=== PATIENT | male | born 1995 | race Caucasian/White ===

== ENCOUNTER → 2021-03-02 19:52 | Outpatient (CLI) | payer SELFPAY ==
[2021-03-02 21:49] LABS: Urine N gonorrhoeae NOT DETECTED
[2021-03-02 21:56] LABS: Urine Chlamydia NOT DETECTED
== END ==
PROVIDERS: Visit Provider Student in an Organized Health Care Education/Training Program
DX: N50.819 Testicular pain, unspecified (principal)
CPT/HCPCS: 87086; 87491; 87591

== ENCOUNTER → 2025-08-24 07:07 | Outpatient (CLI) | payer BC, SELFPAY ==
--- NOTE | 2025-08-24 07:09 | DI.ECHO.S_ITS ---
[facility] : : [address] : : [place] : : [id number] : : Phone: [phone] Echocardiogram Report + + :Name: LEONELA CHOUDHARY Study Date: 08/24/2025 Height: 62 in : :[facility] ReadingLocation: Weight: 203 lb : : Gender: Male BSA: 1.9 m2 : :: 1995 Age: 30 yrs BP: 138/87 mmHg: :Reason For Study: Hypertension : :Ordering Physician: SELENE, : :ALISHA Performed By: Denis Cazares : :Referring: ALISHA MORTON : + + Interpretation Summary Normal echo study. Procedure: A two-dimensional transthoracic echocardiogram with color flow and Doppler was performed. The study quality was technically adequate. There is no prior echocardiogram noted for this patient. The patient was in normal sinus rhythm during the exam. Left Ventricle: The left ventricle is normal in size and wall thickness. The ejection fraction is estimated to be 55-60%. There are no focal wall motion abnormalities. Normal diastolic function. Right Ventricle: The right ventricle is normal in size and function. Atria: The left atrial size is normal. Right atrial size is normal. There is no Doppler evidence for an interatrial shunt. Mitral Valve: The mitral valve leaflets appear normal. There is no evidence of stenosis, fluttering, or prolapse. There is trace mitral regurgitation. Aortic Valve: The aortic valve is trileaflet. The aortic valve opens well. There is no aortic valve stenosis. No aortic regurgitation is present. Tricuspid Valve: The tricuspid valve leaflets are thin and pliable. There is trace tricuspid regurgitation. The right ventricular systolic pressure is estimated to be at least 24 mmHg based on an estimated right atrial pressure of 3 mm Hg. Pulmonic Valve: The pulmonic valve leaflets are thin and pliable; valve motion is normal. There is a trace or physiologic amount of pulmonic regurgitation. Great Vessels: The aortic root is normal size. The ascending aorta is normal in size. The aortic arch is normal in size. The pulmonary artery is normal size. The IVC is of normal diameter and collapses greater than 50% with a sniff. This suggests a low right atrial pressure of 3 mm Hg. Pericardium/ Pleura There is no pericardial effusion. MMode/2D Measurements & Calculations LVIDd: 5.3 cm LVOT diam: 2.1 cm LVIDs: 3.2 cm Ao root diam: 3.0 cm FS: 38.6 % asc Aorta Diam: 3.0 cm IVSd: 0.93 cm Ao Arch Diam (Prox Trans): 2.6 cm LVPWd: 0.87 cm LV nesbitt. diameter/BSA (cm/m^2): 2.7 LV sys. diameter/BSA (cm/m^2): 1.7 LA A2 area: 17.6 cm2 RA long axis: 5.6 cm LA A4 area: 17.8 cm2 RA area: 15.9 cm2 LA length (vol): 6.1 cm RA vol: 38.6 ml LA vol: 43.4 ml RA : 20.1 ml/m2 LA vol index: 22.6 ml/m2 IVC diam: 1.6 cm RVD1 (basal): 2.9 cm RVD2 (mid): 2.2 cm TAPSE: 1.9 cm Doppler Measurements & Calculations Ao V2 max: 134.6 cm/sec LVOT Max Vishal: 126.2 cm/sec Ao V2 mean: 97.8 cm/sec LV V1 max P.4 mmHg Ao max P.3 mmHg LV V1 VTI: 21.1 cm Ao mean P.3 mmHg RAJI(I,D): 3.3 cm2 Ao V2 VTI: 22.6 cm RAJI(V,D): 3.3 cm2 sev ratio: 0.93 RAJI indexed to BSA (cm^2/m^2): 1.7 MV E max vishal: 87.0 cm/sec TR max vishal: 230.2 cm/sec MV A max vishal: 49.4 cm/sec TR max P.2 mmHg MV E/A: 1.8 PA V2 max: 110.0 cm/sec Med Peak E' Vishal: 10.2 cm/sec PA V2 mean: 79.0 cm/sec E/E' med: 8.6 PA mean P.8 mmHg Lat Peak E' Vishal: 16.8 cm/sec PA pr(Accel): 31.5 mmHg E/E' lat: 5.2 E/e' average: 6.9 MV dec time: 0.19 sec SV(LVOT): 74.4 ml Qp/Qs (V,Reyes): 1.0/2.6 Qp/Qs (ALINE Rivera): 1.0/1.2 Electronically signed by: Humberto Arboleda on Reading Physician:08/24/2025 10:33 AM
== END ==
LOC: ECHO 07:08
PROVIDERS: PCP Student in an Organized Health Care Education/Training Program; Referring Provider Student in an Organized Health Care Education/Training Program; Visit Provider Student in an Organized Health Care Education/Training Program
DX: I10 Essential (primary) hypertension (principal)
CPT/HCPCS: 93306

== ENCOUNTER → 2025-10-21 12:17 | Outpatient (CLI) | payer BC, SELFPAY ==
[2025-10-21 12:57] LABS: Add Manual Diff / Slide Review NO; Hematocrit 47.0 % (41-53); Hemoglobin 16.0 g/dL (13.5-17.5); Lymphocytes Absolute Auto 2700 /uL (1100-4500); Mean Corpuscular HGB Conc 34.0 % (30-36); Mean Corpuscular Hemoglobin 26.2 PG (26-34); Mean Corpuscular Volume 77.1 fL (80-100); Platelet Count 231 X10^3/uL (150-400)
[2025-10-21 13:13] LABS: RBC Morphology Normal Morphology
[2025-10-21 13:17] LABS: Hemoglobin A1C% w Est Avg Glu 5.7 % (4.0-6.0)
[2025-10-21 13:24] LABS: Alanine Aminotransferase 72 IU/L (<50); Albumin 5.3 g/dL (3.5-5.0); Albumin Globulin Ratio 2.0 (1.0-2.8); Alkaline Phosphatase 53 U/L (38-126); Blood Urea Nitrogen 16 mg/dL (9-20); Calcium 9.6 mg/dL (8.4-10.2); Carbon Dioxide 31 mmol/L (22-32); Chloride 97 mmol/L (98-107); Cholesterol 233 mg/dL (140-199); Estimated Glomerular Filt Rate > 60 mL/min (>60); Globulin 2.6 g/dL (1.7-4.1); Glucose 103 mg/dL (70-99); HDL Cholesterol 41 mg/dL (40-60); HEMOLYSIS < 15 (0-50); Potassium 4.0 mmol/L (3.4-5.1); Sodium 139 mmol/L (137-145); Total Protein 7.9 g/dL (6.3-8.2); Triglycerides 228 mg/dL (35-150)
[2025-10-21 13:51] LABS: Thyroid Stimulating Hormone 1.24 uIU/mL (0.47-4.68)
== END ==
PROVIDERS: PCP Student in an Organized Health Care Education/Training Program; Referring Provider Student in an Organized Health Care Education/Training Program; Visit Provider Student in an Organized Health Care Education/Training Program
DX: Z13.220 Encounter for screening for lipoid disorders (principal); I10 Essential (primary) hypertension
CPT/HCPCS: 36415; 80053; 80061; 83036; 84443; 85025